=== PATIENT | female | born 1985 | race Hispanic/Latino ===

== ENCOUNTER 2023-06-20 18:34 | Emergency (ER) | payer OTHER, MEDICARE ==
[2023-06-20] VITALS (8 sets, daily range): BP systolic 114–141; BP diastolic 63–98
[~2023-06-20] VITALS: Ht 165.1 cm; Wt 113.0 kg
[2023-06-20] MEDS ORDERED: NAPROXEN500 MG PO (20:04)
== END 2023-06-20 20:17 | disposition home or self-care (01) | DRG 563 ==
LOC: ED 18:34
DX: S63.501A Unspecified sprain of right wrist, initial encounter (principal); X50.0XXA Overexertion from strenuous movement or load, initial encounter; Y93.89 Activity, other specified; Y92.511 Restaurant or cafe as the place of occurrence of the external cause; Y99.0 Civilian activity done for income or pay

== ENCOUNTER 2023-07-21 19:26 | Emergency (ER) | payer MEDICARE, OTHER ==
[~2023-07-21] VITALS: Ht 165.1 cm; Wt 108.9 kg
[~2023-07-21 19:26] MED LIST: NAPROXEN500 MG PO
[2023-07-21] MEDS ORDERED: LEVOTHYROXIN100 MCG PO (20:09)
[2023-07-21] MEDS ORDERED: ENOXAPARIN40 MG/0.1 SC (20:10)
[2023-07-21 21:28] LABS: BASO% 0.3 % (0-3); EOS% 1.1 % (0-8); HEMATOCRIT 38.2 % (37.0-47.0); IMMATURE GRANULOCYTES 0.1 % (0.0-5.0); LYMPH% 17.5 % (15-41); MEAN CELL VOLUME 87.8 fL CALC (80.0-100.0); MEAN CORPUSCULAR HGB 27.6 pG CALC (26.0-32.0); MEAN CORPUSCULAR HGB CONC 31.4 g/dL CAL (32.0-36.0); MONO% 5.8 % (2-13); NEUT# 5.73 thou/uL (2.00-7.15); NEUT% 75.2 % (42-76); RED BLOOD COUNT 4.35 mill/uL (4.20-5.60); RED CELL DISTRI WIDTH 15.1 % (11.5-15.5)
[2023-07-21 21:29] LABS: URINE BILIRUBIN - DIPSTICK Negative (NEGATIVE); URINE BLOOD DIPSTICK Moderate (NEGATIVE); URINE GLUCOSE - DIPSTICK Negative (NEGATIVE); URINE KETONE Negative (NEGATIVE); URINE LEUK ESTERASE Trace (NEGATIVE); URINE NITRITE - DIPSTICK Negative (Negative); URINE PH 5.5 (4.5-8.0); URINE PROTEIN - DIPSTICK Trace mg/dL (NEG-TRACE); URINE SPECIFIC GRAVITY <=1.005; URINE UROBILINOGEN - DIPSTICK 0.2 E.U./dL (0.2)
[2023-07-21 21:34] LABS: URINE COLOR Yellow
[2023-07-21 21:37] LABS: URINE SQUAMOUS EPITHELIAL CELL RARE EPI/hpf (0-FEW); URINE WBC 0-2 WBC/hpf (0-5)
[2023-07-21 21:43] LABS: ALBUMIN 3.4 g/dL (3.2-5.0); BILIRUBIN, TOTAL 0.4 mg/dL (0.02-1.3); CREATININE 2.2 mg/dL (0.5-1.0); POTASSIUM 3.3 mmol/l (3.5-5.1); TOTAL PROTEIN 6.3 g/dL (6.3-8.2)
[2023-07-21] MEDS ORDERED: DICYCLOMINE HYD10 MG PO (22:58)
[2023-07-21] MEDS ORDERED: TRAMADOL HCL50 MG PO (22:58)
[2023-07-21 23:20] VITALS: BP 132/74
== END 2023-07-21 23:20 | disposition home or self-care (01) ==
LOC: ED 19:26
PROVIDERS: Family Medicine
DX: R10.11 Right upper quadrant pain (principal); E03.9 Hypothyroidism, unspecified; J45.909 Unspecified asthma, uncomplicated; Z86.711 Personal history of pulmonary embolism; Z72.0 Tobacco use